=== PATIENT | female | born 1985 | race African-American/Black ===

== ENCOUNTER 2017-04-04 11:39 | Emergency (ER) | payer MEDICAID, OTHER, SELFPAY ==
[2017-04-04] MEDS ORDERED: Ibuprofen 800 MG TAB ONE (12:17)
== END 2017-04-04 13:58 | disposition home or self-care (01) ==
LOC: ERS 11:39
DX: J02.9 Acute pharyngitis, unspecified (principal); F17.210 Nicotine dependence, cigarettes, uncomplicated
CPT/HCPCS: 87081; 87430; 99283

== ENCOUNTER 2021-11-21 13:32 | Emergency (ER) | payer SELFPAY ==
[2021-11-21] MEDS ORDERED: Ondansetron PF 4 MG/2 ML Vial ONE (14:17)
== END 2021-11-21 15:52 | disposition home or self-care (01) ==
LOC: ERS 13:32
DX: R11.2 Nausea with vomiting, unspecified (principal); R19.7 Diarrhea, unspecified; F17.210 Nicotine dependence, cigarettes, uncomplicated
CPT/HCPCS: 96361; 96374; J2405

== ENCOUNTER 2023-03-30 19:31 | Emergency (ER) | payer SELFPAY ==
[2023-03-30] MEDS ORDERED: Ketorolac Tromethamine 30 MG/ML VIAL ONE (21:15)
== END 2023-03-30 21:50 | disposition home or self-care (01) ==
LOC: ERS 19:31
DX: K64.5 Perianal venous thrombosis (principal)
CPT/HCPCS: 96372; 99282; J1885

== ENCOUNTER 2024-02-10 11:08 | Emergency (ER) | payer MEDICAID, OTHER, SELFPAY ==
[2024-02-10 13:21] LABS: #Basophils 0.06 10x3/uL (0.0-0.2); %Basophils 0.6 % (0.0-1.0); %Eosinophils 5.1 % (0.0-10.0); %Lymphocytes 28.7 % (21.0-51.0); %Monocytes 11.5 % (0.0-10.0); %Neutrophils 53.7 % (42.0-75.0); Hematocrit 36.6 % (36.0-47.0); Hemoglobin 12.4 g/dL (12.0-16.0); Mean Corpuscular HGB CONC 33.9 g/dL (32.0-36.0); Mean Corpuscular Hemoglobin 30.6 pg (27.0-31.0); Mean Corpuscular Volume 90.4 fL (78.0-98.0); Mean Platelet Volume 8.5 fL (7.4-10.4); Platelet Count 300 10x3/uL (130-400); RBC Distribution Width 14.3 % (11.5-14.5); Red Blood Cell (RBC) Count 4.05 mill/uL (4.20-5.40)
[2024-02-10 13:43] LABS: ALT (SGPT) 23 U/L (8-55); AST (SGOT) 25 U/L (5-34); Albumin 3.3 g/dL (3.5-5.0); Alkaline Phosphatase 58 U/L (40-110); Anion Gap 10 mmol/L (10-20); BUN (Urea Nitrogen) 5 mg/dL (7.0-18.7); Bilirubin, Total 0.2 mg/dL (0.2-1.2); Calc. Creatinine Clearance 0 mL/min (70-130); Calcium 8.4 mg/dL (7.8-10.44); Carbon Dioxide 27 mmol/L (22-29); Chloride 106 mmol/L (98-107); Estimated GFR 109; Globulin 3.2 g/dL (2.4-3.5); Glucose 87 mg/dL (70-105); Potassium 3.7 mmol/L (3.5-5.1); Protein, Total 6.5 g/dL (6.0-8.3); Sodium 139 mmol/L (136-145); Troponin I Less than 0.010 ng/mL (< 0.028)
[2024-02-10] MEDS ORDERED: diphenhydrAMINE 50 MG/ML VIAL ONE (15:00)
[2024-02-10] MEDS ORDERED: Prochlorperazine 10 MG/2 ML VIAL ONE (15:00)
== END 2024-02-10 15:55 | disposition left against medical advice (07) ==
LOC: ERS 11:08
DX: Z53.21 Procedure and treatment not carried out due to patient leaving prior to being seen by health care provider (principal)
CPT/HCPCS: 36415; 71046; 80053; 83880; 84484; 85025; 93005; J0780; J1200

== ENCOUNTER 2024-02-10 18:19 | Emergency (ER) | payer SELFPAY ==
[2024-02-10 22:39] LABS: Pregnancy Test - Urine (BHCG) Negative (Negative); Pregu Control Background? CLEAR/WHITE (CLR/WHITE); Pregu Control Bar Appear? YES (CONTROL BAR); Specific Gravity 1.008 (1.002-1.036)
[2024-02-10 22:40] LABS: Bacteria/HPF None Seen HPF (None Seen); Bilirubin Negative (Negative); Blood, Urine Negative (Negative); CAUTI Indications for Culture Pelvic or flank pain; Clarity Clear (Clear); Glucose, Urine (Dipstick) Normal (Negative); Ketone, Urine Negative (Negative); Leukocyte Negative Leu/uL (Negative); Nitrite Negative (Negative); Protein, Urine (Dipstick) Negative (Neg-Trace); RBC/HPF 0-3 HPF (0-3); Specific Gravity, Urine 1.009 (1.002-1.036); Squamous Epithelial 0-3 HPF (0-3); Urobilinogen Normal mg/dL (Less than 2); WBC/HPF 0-3 HPF (0-3)
[2024-02-10 22:41] LABS: Urine Culture Reflex No No
== END 2024-02-10 22:56 | disposition home or self-care (01) ==
LOC: ERS 18:19
DX: R60.0 Localized edema (principal); B37.31 Acute candidiasis of vulva and vagina; I10 Essential (primary) hypertension; F17.210 Nicotine dependence, cigarettes, uncomplicated
CPT/HCPCS: 81001; 81025; 99284